=== PATIENT | male | born 1935 | race Hispanic/Latino ===

== ENCOUNTER 2018-10-25 12:23 | Emergency (ER) | payer MEDICARE ==
[2018-10-25 12:44] VITALS: BP 122/83
--- NOTE | 2018-10-25 12:45 | Emergency Department Report ---
Blank Doc - Documentation Documentation: pt states his english catheter bag is leaking states this catheter has been in for 2-3 months, states it was placed by DR. Callaway, urology states he has a follow up appt next month no abd pain denies any urinary issues states he has had clear/yellow urine denies blood in the urine denies issues with his catheter PMHx of prostate cancer in 2011
--- NOTE | 2018-10-25 14:08 | Emergency Department Report ---
ED Male HPI - General Chief complaint: Urogenital-Male Stated complaint: CATHETER Time Seen by Provider: 10/25/18 12:40 Source: patient Mode of arrival: Ambulatory Limitations: No Limitations - History of Present Illness Initial comments: 83-year-old male with a past medical history prostate cancer treated with radiation C implants presents to the hospital with leaking to his Ortez leg bag. Catheter was placed by his urologist urinary problems after seed implant. It started leaking last night. Patient denies abdominal pain, fever, or cloudy or bloody urine output. - Related Data Home Medications Medication Instructions Recorded Confirmed Last Taken Aspirin [Aspirin BABY CHEW TAB] 81 mg PO QDAY 05/18/14 03/10/15 Unknown Simvastatin (Nf) [Zocor TAB] 20 mg PO QHS 05/18/14 03/10/15 Unknown Tolterodine Tartrate [Tolterodine 4 mg PO DAILY 05/18/14 03/10/15 Unknown Tartrate ER] Previous Rx's Medication Instructions Recorded Last Taken Type Ferrous Sulfate [Feosol 325 MG tab] 325 mg PO QDAY #30 tablet 03/12/15 Unknown Rx Metoprolol [Lopressor TAB] 25 mg PO BID #60 tablet 03/12/15 Unknown Rx Pantoprazole [Protonix TAB] 40 mg PO QDAY #30 tablet 03/12/15 Unknown Rx amLODIPine [Norvasc] 10 mg PO QDAY #30 tablet 03/12/15 Unknown Rx Allergies Allergy/AdvReac Type Severity Reaction Status Date / Time Sulfa (Sulfonamide Allergy Hives Verified 10/25/18 12:26 Antibiotics) ED Review of Systems ROS: Stated complaint: CATHETER Other details as noted in HPI Comment: All other systems reviewed and negative ED Past Medical Hx - Past Medical History Hx Hypertension: Yes Hx Renal Disease: Yes (acute on chronic renal failure? ) Hx Seizures: No Hx Asthma: No - Surgical History Additional Surgical History: seed implant. - Social History Smoking Status: Never Smoker Substance Use Type: None - Medications Home Medications: Home Medications Medication Instructions Recorded Confirmed Last Taken Type Aspirin [Aspirin BABY CHEW TAB] 81 mg PO QDAY 05/18/14 03/10/15 Unknown History Simvastatin (Nf) [Zocor TAB] 20 mg PO QHS 05/18/14 03/10/15 Unknown History Tolterodine Tartrate [Tolterodine 4 mg PO DAILY 05/18/14 03/10/15 Unknown History Tartrate ER] Ferrous Sulfate [Feosol 325 MG tab] 325 mg PO QDAY #30 tablet 03/12/15 Unknown Rx Metoprolol [Lopressor TAB] 25 mg PO BID #60 tablet 03/12/15 Unknown Rx Pantoprazole [Protonix TAB] 40 mg PO QDAY #30 tablet 03/12/15 Unknown Rx amLODIPine [Norvasc] 10 mg PO QDAY #30 tablet 03/12/15 Unknown Rx ED Physical Exam - General Limitations: No Limitations - Other Other exam information: General: No limitations Head exam: Atraumatic, normocephalic Eyes exam: Normal appearance ENT: Moist mucous membrane Neck exam: Normal inspection, full range of motion, no meningismus nontender Respiratory exam: Clear to auscultation bilateral, no wheezes, rales, crackles Cardiovascular: Normal rate and rhythm, normal heart sounds Abdomen: Soft, nondistended, and nontender, with normal bowel sounds, no rebound, or guarding : Ortez bag with clear yellow output Extremity: Full range of motion normal inspection no deformity Back: Normal Inspection, full range of motion, no tenderness Neurologic: Alert, oriented x3, cranial nerves intact, no motor or sensory deficit Psychiatric: normal affect, normal mood Skin: Warm, dry, intact ED Course Vital Signs 10/25/18 12:42 Temperature 97.7 F Pulse Rate 66 Respiratory 18 Rate Blood Pressure 122/83 [Left] O2 Sat by Pulse 98 Oximetry ED Medical Decision Making - Medical Decision Making Patient presents with Ortez bag leakage without other complaints. Patient provided a new Ortez leg bag in the ED and will be discharged to follow-up with his urologist. - Differential Diagnosis Ortez bag leakage Critical Care Time: No Critical care attestation.: If time is entered above; I have spent that time in minutes in the direct care of this critically ill patient, excluding procedure time. ED Disposition Clinical Impression: Complication of Ortez catheter Disposition: DC-01 TO HOME OR SELFCARE Is pt being admited?: No Does the pt Need Aspirin: No Condition: Stable Instructions: Urinary Leg Bag (GEN) Additional Instructions: Take the medication as prescribed. Follow up with your doctor or the clinic/doctor provided. Return if symptoms worsen as indicated by your discharge instructions Referrals: FRANCO MATOS III, SENIOR INFORMATION [employer]ITY ENGINEER-[employer] [Primary Care Provider] - 3-5 Days your, urologist [Other] - 3-5 Days Time of Disposition: 14:07
== END 2018-10-25 14:17 | disposition home or self-care (01) ==
LOC: ED 12:23
DX: T83.038A Leakage of other urinary catheter, initial encounter (principal); I10 Essential (primary) hypertension; Y92.89 Other specified places as the place of occurrence of the external cause
CPT/HCPCS: 99282

== ENCOUNTER 2018-12-29 00:28 | Emergency (ER) | payer MEDICARE ==
[2018-12-29 00:41] VITALS: BP 146/99
--- NOTE | 2018-12-29 01:18 | Emergency Department Report ---
ED Male HPI - General Chief complaint: Urogenital-Male Stated complaint: TUBE CAME OUT STOMACH Time Seen by Provider: 12/29/18 01:05 Source: patient Mode of arrival: Ambulatory Limitations: No Limitations - History of Present Illness Initial comments: Patient is a 83 years old male with history of prostate cancer. Patient presented to the ER stating that his suprapubic catheter came out one hour ago. Patient denied any other complaint. He denies any fever or chills. Complaint: other - Related Data Home Medications Medication Instructions Recorded Confirmed Last Taken Aspirin [Aspirin BABY CHEW TAB] 81 mg PO QDAY 05/18/14 03/10/15 Unknown Simvastatin (Nf) [Zocor TAB] 20 mg PO QHS 05/18/14 03/10/15 Unknown Tolterodine Tartrate [Tolterodine 4 mg PO DAILY 05/18/14 03/10/15 Unknown Tartrate ER] Previous Rx's Medication Instructions Recorded Last Taken Type Ferrous Sulfate [Feosol 325 MG tab] 325 mg PO QDAY #30 tablet 03/12/15 Unknown Rx Metoprolol [Lopressor TAB] 25 mg PO BID #60 tablet 03/12/15 Unknown Rx Pantoprazole [Protonix TAB] 40 mg PO QDAY #30 tablet 03/12/15 Unknown Rx amLODIPine [Norvasc] 10 mg PO QDAY #30 tablet 03/12/15 Unknown Rx Allergies Allergy/AdvReac Type Severity Reaction Status Date / Time codeine Allergy Hives Verified 12/29/18 00:30 Sulfa (Sulfonamide Allergy Hives Verified 10/25/18 12:26 Antibiotics) ED Review of Systems ROS: Stated complaint: TUBE CAME OUT STOMACH Other details as noted in HPI Comment: All other systems reviewed and negative Constitutional: denies: chills, fever Respiratory: denies: cough, shortness of breath Cardiovascular: denies: chest pain, palpitations Gastrointestinal: denies: abdominal pain, nausea, vomiting, diarrhea, constipation, hematemesis, hematochezia Genitourinary: denies: urgency, dysuria, frequency, hematuria, testicular pain, testicular mass Musculoskeletal: denies: back pain Neurological: denies: headache, weakness ED Past Medical Hx - Past Medical History Previous Medical History?: Yes Hx Hypertension: Yes Hx CVA: Yes (Left side weakness) Hx Renal Disease: Yes (acute on chronic renal failure? ) Hx of Cancer: Yes (Prostate 2011) Hx Seizures: No Hx Asthma: No Additional medical history: Patient has a suprapubic Catheter - Surgical History Past Surgical History?: Yes Additional Surgical History: seed implant. - Social History Smoking Status: Never Smoker Substance Use Type: None - Medications Home Medications: Home Medications Medication Instructions Recorded Confirmed Last Taken Type Aspirin [Aspirin BABY CHEW TAB] 81 mg PO QDAY 05/18/14 03/10/15 Unknown History Simvastatin (Nf) [Zocor TAB] 20 mg PO QHS 05/18/14 03/10/15 Unknown History Tolterodine Tartrate [Tolterodine 4 mg PO DAILY 05/18/14 03/10/15 Unknown History Tartrate ER] Ferrous Sulfate [Feosol 325 MG tab] 325 mg PO QDAY #30 tablet 03/12/15 Unknown Rx Metoprolol [Lopressor TAB] 25 mg PO BID #60 tablet 03/12/15 Unknown Rx Pantoprazole [Protonix TAB] 40 mg PO QDAY #30 tablet 03/12/15 Unknown Rx amLODIPine [Norvasc] 10 mg PO QDAY #30 tablet 03/12/15 Unknown Rx ED Physical Exam - General Limitations: No Limitations General appearance: alert, in no apparent distress - Head Head exam: Present: atraumatic, normocephalic, normal inspection - Eye Eye exam: Present: normal appearance - ENT ENT exam: Present: normal exam, normal orophraynx, mucous membranes moist - Neck Neck exam: Present: normal inspection, full ROM. Absent: tenderness, meningismus, lymphadenopathy, thyromegaly - Respiratory Respiratory exam: Present: normal lung sounds bilaterally - Cardiovascular Cardiovascular Exam: Present: regular rate, normal rhythm, normal heart sounds - GI/Abdominal GI/Abdominal exam: Present: soft, normal bowel sounds. Absent: distended, tenderness, guarding, rebound, rigid, organomegaly, mass, bruit, pulsatile mass, hernia - Extremities Exam Extremities exam: Present: normal inspection, full ROM, normal capillary refill - Back Exam Back exam: Present: normal inspection, full ROM. Absent: CVA tenderness (R), CVA tenderness (L) - Neurological Exam Neurological exam: Present: alert, oriented X3, CN II-XII intact, normal gait - Psychiatric Psychiatric exam: Present: normal mood - Skin Skin exam: Present: warm, intact, normal color ED Course Vital Signs 12/29/18 00:38 Temperature 97.9 F Pulse Rate 80 Respiratory 16 Rate Blood Pressure 146/99 O2 Sat by Pulse 96 Oximetry - Catheter Insertion (Urinary) Indications: replaced: fell out/removed/no longer functioning Preparation: Providone-Iodine Type of Catheter Inserted: Ortez Catheter Kiswahili Size: 18 Catheter Balloon Size (mls): 10 Results: successfully catherized-immediate flow Patient Tolerated Procedure: well, no complications Complications: none Additional Comments: This is a suprapubic catheter. Critical care attestation.: If time is entered above; I have spent that time in minutes in the direct care of this critically ill patient, excluding procedure time. ED Disposition Clinical Impression: Suprapubic catheter dysfunction Disposition: DC-01 TO HOME OR SELFCARE Is pt being admited?: No Condition: Stable Instructions: How to Care for Your Suprapubic Catheter (ED) Referrals: HERNAN MORENO MD [Referring] - 3-5 Days
== END 2018-12-29 01:49 | disposition home or self-care (01) ==
LOC: ED 00:28
DX: T83.028A Displacement of other urinary catheter, initial encounter (principal); I10 Essential (primary) hypertension; I63.9 Cerebral infarction, unspecified; Z79.899 Other long term (current) drug therapy; Z88.2 Allergy status to sulfonamides; Z88.6 Allergy status to analgesic agent; Z85.46 Personal history of malignant neoplasm of prostate; Y92.89 Other specified places as the place of occurrence of the external cause
CPT/HCPCS: 51702; 99282